=== PATIENT | male | born 1990 | race Caucasian/White ===

== ENCOUNTER → 2020-12-12 | Outpatient (CLI) | payer OTHER | LOC: M.ULTRA 11:24 | PROVIDERS: ATTEND Family Medicine | DX: N45.1 Epididymitis (principal) ==

== ENCOUNTER 2021-05-03 00:08 | Observation (INO) | payer OTHER ==
[~2021-05-03] VITALS: Ht 177.8 cm; Wt 86.2 kg
[2021-05-03 00:12] VITALS: BP 121/79
[2021-05-03] MEDS ORDERED: ZOLOFT50 M1 PO (00:16)
[2021-05-03 02:40] LABS: ABSOLUTE EOSINOPHILS 0.1 thou/uL (0.0-0.7); ABSOLUTE LYMPHOCYTES 1.4 thou/uL (0.8-5.3); ABSOLUTE MONOCYTES 1.3 thou/uL (0.0-1.2); ABSOLUTE NEUTROPHILS 8.8 thou/uL (1.6-8.1); BASOPHILS 0.3 %; EOSINOPHILS 0.9 %; HEMATOCRIT 42.3 % (42.0-52.0); HEMOGLOBIN 13.9 gm/dL (14.0-18.0); LYMPHOCYTES 12.2 %; MCH 28.6 pg (26.0-34.0); MCV 86.8 fL (80.0-100.0); MONOCYTES 11.4 %; MPV 9.3 fl. (7.2-11.1); NUCLEATED RBCS 0 /100WBC; PLATELET COUNT* 168 thou/uL (150-400); POLYS 75.2 %; RBC 4.87 mil/uL (4.50-6.00); RDW-CV 12.8 % (10.5-14.5); WBC 11.7 thou/uL (4.0-11.0)
[2021-05-03 02:41] LABS: CALCIUM 9.2 mg/dL (8.5-10.1); CREATININE 1.3 mg/dL (0.6-1.3); POTASSIUM 4.3 mmol/L (3.5-5.1)
[2021-05-03 08:23] VITALS: BP 127/73
[2021-05-03] MEDS ORDERED: OXYCODONE HCL 55 MG PO (11:57)
[2021-05-03 11:58] VITALS: BP 127/73
--- NOTE | 2021-05-07 12:07 | PATH ---
[address] [address] PATHOLOGY RPT PROCEDURE Name: DEVAUGHN RANGEL Room: [address] Sonali Frias#: [id number] Admission: 05/03/21 Date of : 86 Discharge: 05/03/21 Report #: [id number] Path Case #: [id number] [facility] Accession Number: [id number] . 01 Material submitted: . appendix - APPENDIX . 01 Clinician provided ICD-10: n . 01 Clinical history: . ACUTE APPENDICITIS . 02 Diagnosis: Appendix: - Chronic and acute appendicitis, periappendicitis and serositis with nodular fat necrosis and calcification in periappendiceal fat. - Small benign incidental periappendiceal lymph node. (MARGI:gaviota; 05/06/2021) S 05/06/2021 1312 Local . 02 Electronically signed: . Eleazar Belle MD, Pathologist NPI- [id number] . 01 Gross description: . Fixative: Formalin Labeled: Devaughn Rangel, appendix in formalin Perforation: None, intact Appendix size: 8.5 cm in length by up to 2.0 cm in diameter Mesoappendix: Abundant Proximal margin: Inked black Serosa: Bella, red and hemorrhagic with overlying fibrinous exudate Mucosa: Bella, hemorrhagic and unremarkable Luminal diameter: Ranging from less than 0.1 cm to 0.4 cm Wall thickness: Ranging from 0.4 cm to 1.1 cm Lesions/abnormalities: None . A1-A9: Patient Care Director sections of appendix to include the proximal margin (submitted en face) entirely in A1-A2, the entirety of the distal tip in A3-A7. (MASHPEE; 05/05/2021) DKA/DKA 05/05/2021 1312 Local . 02 Pathologist provided ICD-10: K35.20, K36 . 02 CPT . [id number] [place] [address] PATHOLOGY RPT PROCEDURE Name: DEVAUGHN RANGEL Room: [address]#: [id number] Admission: 05/03/21 Date of : 86 Discharge: 05/03/21 Report #: [id number] Path Case #: [id number] Specimen Comment: A courtesy copy of this report has been sent to [phone] Specimen Comment: Report sent to Specimen Comment: A duplicate report has been generated due to demographic updates. Performed at: 01 [facility] [address], [place], [place] [id number] MD Jakub Beckwith MD Phone: [phone] Performed at: 02 [facility] [place] [address] [address], [place], [place] [id number] MD Eleazar Belle MD Phone: [phone]
--- NOTE | 2021-05-20 11:20 | OP ---
[address] [address] OPERATIVE REPORT Name: MADI QUARLES Room: [address] Sonali Frias#: [id number] Admission: 05/03/21 Attend Phys: Walter Branch DO Discharge: 05/03/21 Date of : 86 Report #: [id number] THIS REPORT FOR: cc: Saurabh Carrillo,Saurabh Fair,Walter Painting DO ~ cc: Saurabh Carrillo DO DATE OF SURGERY: 05/03/2021 PREOPERATIVE DIAGNOSIS: Acute appendicitis. POSTOPERATIVE DIAGNOSIS: Acute appendicitis. PROCEDURE PERFORMED: Laparoscopic appendectomy with partial cecectomy. SURGEON: Walter Branch DO. CO-SURGEONS: Raúl Bhatia DO, PGY5. MEDIA MANAGER: Ana Rosa Max MS3. ANESTHESIA: General. ESTIMATED BLOOD LOSS: 20. SPECIMEN: Appendix. COMPLICATIONS: None. HISTORY OF PRESENT ILLNESS: The patient is a 30-year-old male who presented to the emergency room with complaint of acute onset of right lower quadrant abdominal pain. CT scan confirmed acute appendicitis along with physical exam. We discussed the need for laparoscopic appendectomy. Risks, benefits and alternatives were discussed at length with him and he agreed to proceed with surgery. DESCRIPTION OF PROCEDURE: After consent was obtained, the patient was taken to the operating room and placed in the supine position. SCDs to bilateral lower extremities, safety belt placed across the patient's waist. Antibiotics were given for surgical prophylaxis. The patient underwent bilateral TAP blocks by the anesthesia team and was intubated under general anesthesia without any complications. The patient's abdomen was prepped and draped in the standard sterile fashion. Timeout was performed confirming the patient and procedure. An 11 blade scalpel was used to make an incision just above the umbilicus. Electrocautery was used for hemostasis. Once the fascia was encountered, [place] [address] OPERATIVE REPORT Name: QUARLESMADI CASPER Room: [address] Sonali Frias#: [id number] Admission: 05/03/21 Attend Phys: Walter Branch DO Discharge: 05/03/21 Date of : 86 Report #: [id number] scored with electrocautery, grasped between 2 Kochers. Hemostat was used to bluntly enter the peritoneum. Two stitches of 0 Vicryl placed on either side of the fascia. A 5 mm Alessandro trocar was inserted in the abdomen and insufflation was initiated. The intra-abdominal contents were inspected in the right lower quadrant. There was evidence of localized peritonitis. There was a large appendix that was adhered to the right lateral abdominal wall. It was obviously inflamed and distended consistent with acute appendicitis. Two more trocars were placed, one 5 mm trocar in the suprapubic and one 12 mm trocar in the left lower quadrant. A Harmonic scalpel was used to carefully dissect across the mesoappendix to the base of the cecum. The terminal ileum was carefully from the inflamed appendix and moved cephalad out of the way of our surgical dissection. The lateral portion of the cecum was dissected off of the lateral sidewall and the appendix was completely mobilized circumferentially. The very proximal portion of the cecum appeared to be quite inflamed. Therefore, we elected to perform a partial cecectomy along with our appendectomy. A 60 mm Endo-KYLER stapling device was fired across the very proximal portion of the cecum, taking care to leave the terminal ileum intact. Once our cecectomy was completed and appendectomy completed, we placed the specimen in a laparoscopic EndoCatch bag. The staple line was closely examined along with the mesentery of the previously resected appendix. Hemostasis was completely ensured. Staple line was intact. Right lower quadrant was irrigated copiously. All fluid was suctioned out. The pelvis was inspected and all fluid was suctioned out from the pelvis. At this point, insufflation was let down slowly. All trocars were removed under direct visualization. The left lower quadrant trocar was closed with a Judd-Paige device using 0 Vicryl to ensure closure of fascia. Specimen was removed from the supraumbilical trocar site and sent for pathologic evaluation. The supraumbilical fascia was reapproximated with 2 stitches of 0 Vicryl in a [id number] fashion. Subcutaneous tissue reapproximated with 3-0 Vicryl. All skin incisions were reapproximated with 4-0 Monocryl. All needle, instrument and sponge counts were correct x 2 at the end of the case. Sterile skin glue was used to cover our incisions. The patient was then awoken from general anesthesia and transferred to PACU in stable condition. <ELECTRONICALLY SIGNED> By: Walter Branch DO 05/20/21 1120 1008 [id number] Branch DO /nt
== END 2021-05-03 12:55 | disposition home or self-care (01) ==
LOC: M.ERS 00:08 → M.TBA-ER 05:42
PROVIDERS: Emergency Medicine; ADMIT Surgery; ATTEND Surgery
DX: K35.80 Unspecified acute appendicitis (principal); Z20.822 Contact with and (suspected) exposure to COVID-19; F41.9 Anxiety disorder, unspecified; Z79.899 Other long term (current) drug therapy